=== PATIENT | female | born 1995 | race Caucasian/White ===

== ENCOUNTER 2016-07-11 13:35 | Emergency (ER) | payer OTHER ==
[~2016-07-11] VITALS: Wt 54.5 kg
[~2016-07-11 13:35] MED LIST: ADV25050 INH; ALBU8.5H3 INH; ALBU8.5H3 PO; LEVA15HF6 INH; PRED20TA PO
[2016-07-11] MEDS ORDERED: IBUPROFEN 600 MG TAB PO ONE (14:00)
[2016-07-11] MEDS ORDERED: DIAZEPAM 5 MG TAB PO ONE (14:00)
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
[2016-07-11] MEDS ORDERED: CYCL5TAB PO (14:34)
[2016-07-11] MEDS ORDERED: IBUP-1542 PO (14:34)
[2016-07-11] MEDS ORDERED: ONDANSETRON (ODT) 4 MG TAB ODT STA (15:15)
== END 2016-07-11 16:05 | disposition home or self-care (01) ==
LOC: FTE 13:35
DX: S16.1XXA Strain of muscle, fascia and tendon at neck level, initial encounter (principal); J45.909 Unspecified asthma, uncomplicated; V49.50XA Passenger injured in collision with unspecified motor vehicles in traffic accident, initial encounter
CPT/HCPCS: 72040; Z7502; Z7610

== ENCOUNTER 2017-02-08 14:54 | Emergency (ER) | payer OTHER ==
[~2017-02-08] VITALS: Ht 154.9 cm; Wt 54.8 kg
[~2017-02-08 14:54] MED LIST changes: +IBUP-1542 PO
[2017-02-08 14:57] VITALS: Ht 154.9 cm; Wt 54.8 kg
[2017-02-08] MEDS ORDERED: ALBUTEROL 0.5% (NEB) 2.5 MG/0.5 ML AMP INH STA (15:48)
[2017-02-08] MEDS ORDERED: IPRATROPIUM (NEB) 0.5 MG/2.5 ML AMP NEB STA (15:48)
[2017-02-08] MEDS ORDERED: METHYLPREDNISOLONE 125 MG INJ IM ONE (16:00)
--- NOTE | 2017-02-08 17:50 | RADRPT ---
PROCEDURE: XR Chest. CLINICAL INDICATION: Cough TECHNIQUE: Single AP view of the chest were obtained . The patient abdomen was shielded during the exam. COMPARISON: None FINDINGS: The heart and mediastinum are within normal limits. The pulmonary vasculature are unremarkable. The aorta is unremarkable. There is no lung consolidation, pleural effusion or pneumothorax. There i s no acute osseous abnormality. IMPRESSION: No acute disease. RPTAT: AA .Marcie Pryor MD, MD Date Time Electronically viewed and signed by .Marcie Pryor MD, MD on 02/08/2017 17:50 .J/
[2017-02-08] MEDS ORDERED: ALBU2.5V3 NEB (18:25)
[2017-02-08] MEDS ORDERED: ALBU18HF INHALATION (18:25)
[2017-02-08 18:33] VITALS: BP 115/68; PULSE 87; RESP 18
--- NOTE | 2017-02-08 22:57 | ERD ---
ER Documentation Chief Complaint Chief Complaint Asthma attack x 1 week worst today, flu like s/s HPI 21-year-old female with history of asthma is complaining of shortness of breath 1 day. Patient stated that she ran out of albuterol nebulizer and inhaler. She was prescribed Advair inhaler, but she is not using them. She is taking prednisone 20 mg daily, and Singulair daily. Patient reports pain in the back with deep breathing, as well as wheezing. She has a nonproductive cough. Denies fever. Denies abdominal pain, nausea, vomiting, diarrhea. ROS All systems reviewed and are negative except as per history of present illness. Medications Home Meds Active Scripts Albuterol Sulfate* (Ventolin HFA*) 18 Gm Hfa.aer.ad, 2 PUFF INHALATION Q4H, #1 INHALER Prov:EVGENY TURNER NP 02/08/17 Albuterol Sulfate* (Albuterol Sulfate* Neb) 0.083%-3 Ml Neb, 2.5 MG NEB Q4 Y for SHORTNESS OF BREATH, #30 EA Prov:EVGENY TURNER NP 02/08/17 Ibuprofen* (Motrin*) 600 Mg Tab, 600 MG PO Q6, #30 TAB Prov:ODALIS BERRY PA-C 07/11/16 Albuterol Sulfate* (Proair HFA*) 8.5 Gm Hfa.aer.ad, 2 PUFF INH Q4, #1 INHALER Prov:ODALIS BERRY PA-C 05/14/15 Levalbuterol* (Xopenex* HFA) 15 Gm Inha, 1-2 PUFF INH Q4 Y for SHORTNESS OF BREATH, #1 EA Prov:ODALIS BERRY PA-C 05/14/15 Prednisone* (Prednisone*) 20 Mg Tab, 40 MG PO DAILY for 4 Days, TAB Prov:ODALIS BERRY PA-C 05/14/15 Prednisone* (Prednisone*) 20 Mg Tab, 40 MG PO DAILY for 4 Days, TAB start 01/16 Prov:JUSTIN WADSWORTH MD 01/15/15 Albuterol Sulfate* (Proair HFA*) 8.5 Gm Hfa.aer.ad, 2 PUFF INH Q4 for 14 Days, INH 2 Refills Prov:JUSTIN WADSWORTH MD 01/15/15 Salmeterol Xinaf/Fluticasone* (Advair*) 250-50 Diskus Inhaler, 1 INH INH BID, # 1 INH 1 Refill Prov:JUSTIN WADSWORTH MD 01/15/15 Reported Medications Albuterol Sulfate* (Proair HFA*) 8.5 Gm Hfa.aer.ad, 1-2 PUFFS PO Q4-6HOURS Y for SHORTNESS OF BREATH 08/04/10 Allergies Allergies: Coded Allergies: No Known Drug Allergy (Unverified Allergy, Mild, 11/24/13) PMhx/Soc History of Surgery: No Anesthesia Reaction: No Hx Neurological Disorder: No Hx Respiratory Disorders: Yes (ASTHMA) Hx Cardiac Disorders: No Hx Psychiatric Problems: No Hx Miscellaneous Medical Probl: No Hx Alcohol Use: No Hx Substance Use: No Hx Tobacco Use: No Physical Exam Vitals Vital Signs Date Time Temp Pulse Resp B/P Pulse Ox O2 Delivery O2 Flow Rate FiO2 02/08/17 18:33 87 18 115/68 100 Room Air 02/08/17 16:04 79 18 85 21 02/08/17 14:57 100.4 117 20 127/89 96 Physical Exam General: Well-developed, well-nourished, conscious and coherent, in no distress Skin: Warm and dry without rash, good texture and turgor Head: Normocephalic without evidence of trauma Eyes: Sclera and conjunctivae normal; pupils equal, round, and reactive to light; extraocular movements are intact. Slight exophthalmos. Neck: Supple without meningismus or adenopathy. Carotids are equal. Trachea midline. No bruits or JVD. Thyroid gland is enlarged and palpable bilaterally, no palpable nodules. Chest: Normal AP diameter. Good expansion without retractions. Nontender. Diffuse wheezes and coarse lung sounds throughout with good tidal volume Heart: Regular rate and rhythm. No murmur, rub, or gallops heard Extremities: Full range of motion. Good strength bilaterally. No clubbing, cyanosis, or edema. Peripheral pulses are intact. Sensation intact Neuro: Alert and oriented 4, GCS 15. Cranial nerves grossly intact. Motor and sensory exams nonfocal. Moves all extremities. Speech clear. Gait normal Results 24 hrs Current Medications Medications (Trade) Dose Ordered Sig/Monika Route PRN Reason Start Time Stop Time Status Last Admin Dose Admin Ipratropium [place] (Atrovent 0.02% (Neb)) 0.5 mg ONCE STAT NEB 02/08/17 15:48 02/08/17 15:51 DC 02/08/17 16:02 Albuterol (Proventil 0.5% (Neb)) 10 mg ONCE STAT INH 02/08/17 15:48 02/08/17 15:51 DC 02/08/17 16:02 Methylprednisolone Sodium Succinate (Solu-Medrol) 125 mg ONCE ONCE IM 02/08/17 16:00 02/08/17 16:01 DC 02/08/17 15:55 PROCEDURE: XR Chest. CLINICAL INDICATION: Cough TECHNIQUE: Single AP view of the chest were obtained . The patient abdomen was shielded during the exam. COMPARISON: None FINDINGS: The heart and mediastinum are within normal limits. The pulmonary vasculature are unremarkable. The aorta is unremarkable. There is no lung consolidation, pleural effusion or pneumothorax. There is no acute osseous abnormality. IMPRESSION: No acute disease. RPTAT: AA .Marcie Pryor MD, MD Date Time Electronically viewed and signed by .Marcie Pryor MD, MD on 02/08/2017 17:50 .J/ CC: EVGENY TURNER. [employer] CLEANING SUPERVISOR Procedures/MDM Solu-Medrol 125 mg IM, albuterol 10 mg and Atrovent 0.5 mg continuous nebulizer treatment given to the patient in ED. Patient reports breathing better after the nebulizer treatment. Repeat exam revealed complete clear lungs bilaterally. Chest x-ray is negative for acute cardiopulmonary processes. Patient is advised to use Advair twice daily as prescribed to control her asthma. I also questioned daily prednisone use, and have her follow-up with her PCP to see if she still needs continued prednisone use. For now, I feel he will help to control her acute exacerbation. On physical exam, patient noted to have exophthalmos and enlarged thyroid glands. I question patient further, patient stated that her hair has been thinning and falling out, and she is noticing her heart beating fast as well as feeling hot all the time. I suspect the patient may have hyperthyroidism. I doubt thyroid storm or toxic thyroiditis. I advised patient to follow-up with her PCP to evaluate her thyroid. Patient appears well, stable for discharge and outpatient management. Medical decision making shared with patient and family. Education provided to patient and family. Patient and family expressed understanding of the plan. Medications on discharge: Albuterol nebulizer, albuterol HFA. Follow-up: Primary care provider in 2-3 days or return to ED if worse. Disclaimer: Inadvertent spelling and grammatical errors are likely due to EHR/ dictation software use and do not reflect on the overall quality of patient care. Also, please note that the electronic time recorded on this note does not necessarily reflect the actual time of the patient encounter. Departure Diagnosis: Primary Impression: Asthma exacerbation Condition: Stable Patient Instructions: Asthma, Acute (Adult) Referrals: [facility], [facility] YOU HAVE RECEIVED A MEDICAL SCREENING EXAM AND THE RESULTS INDICATE THAT YOU DO NOT HAVE A CONDITION THAT REQUIRES URGENT TREATMENT IN THE EMERGENCY DEPARTMENT. FURTHER EVALUATION AND TREATMENT OF YOUR CONDITION CAN WAIT UNTIL YOU ARE SEEN IN YOUR DOCTORS OFFICE WITHIN THE NEXT 1-2 DAYS. IT IS YOUR RESPONSIBILITY TO MAKE AN APPOINTMENT FOR FOLOW-UP CARE. IF YOU HAVE A PRIMARY DOCTOR --you should call your primary doctor and schedule an appointment IF YOU DO NOT HAVE A PRIMARY DOCTOR YOU CAN CALL OUR PHYSICIAN REFERRAL HOTLINE AT IF YOU CAN NOT AFFORD TO SEE A PHYSICIAN YOU CAN CHOSE FROM THE FOLLOWING [facility] [address] [facility] [facility] [address] [facility] [facility] [address] [facility] [address] [facility]. [facility] [address] [facility] [facility] [facility]. [facility]. [address] Additional Instructions: Call your primary care doctor TOMORROW for an appointment during the next 2-3 days.See the doctor sooner or return here if your condition worsens before your appointment time. EVGENY TURNER NP Feb 08, 2017 22:27
== END 2017-02-08 18:34 | disposition home or self-care (01) ==
LOC: FTE 14:54
DX: J45.901 Unspecified asthma with (acute) exacerbation (principal)
CPT/HCPCS: 71010; 94644; 96372; J2930; Z7502; Z7610

== ENCOUNTER 2017-10-28 10:05 | Emergency (ER) | END 2017-10-28 13:25 | disposition home or self-care (01) ==

== ENCOUNTER 2018-03-08 10:46 | Emergency (ER) | payer OTHER ==
[~2018-03-08] VITALS: Ht 167.6 cm; Wt 54.4 kg
[~2018-03-08 10:46] MED LIST changes: +ALBU18HF INHALATION; +ALBU2.5V3 NEB; -ALBU8.5H3 INH; -ALBU8.5H3 PO; +ALBU8.5H8 INH; +ALBU8.5H8 PO; +AZIT250T PO; +CETI10CA PO; +FLUT12HF IH
[2018-03-08 10:50] VITALS: BP 122/75; PULSE 96; RESP 20; Ht 167.6 cm; Wt 54.4 kg
[2018-03-08] MEDS ORDERED: CEFU500T45 PO (11:23)
[2018-03-08] MEDS ORDERED: PRED20TA PO (11:23)
--- NOTE | 2018-03-08 11:25 | ERD ---
ER Documentation Chief Complaint Chief Complaint Complains of clogged ear and sinus problems x 2 days HPI 22-year-old female presents with bilateral ear congestion, nasal congestion, facial pain worsening over the last 2 weeks. She tried to see her PCP today but her group was changed. She denies any measured fevers. She has cough as well. She has a history of asthma and uses albuterol. ROS All systems reviewed and are negative except as per history of present illness. Medications Home Meds Active Scripts Prednisone* (Prednisone*) 20 Mg Tab, 40 MG PO DAILY for 5 Days, TAB Prov:JUSTIN WADSWORTH MD 03/08/18 Cefuroxime Axetil* (Cefuroxime Axetil*) 500 Mg Tablet, 500 MG PO BID for 10 Days, TAB Prov:JUSTIN WADSWORTH MD 03/08/18 Azithromycin* (Zithromax*) 250 Mg Tablet, 250 MG PO .ZPACK DIRECTED, #6 TAB TAKE 500 MG (2 TABS) THE FIRST DAY THEN 250 MG (1 TAB) DAYS 2-5 Prov:TODD MTZ PA-C 10/28/17 Cetirizine Hcl* (Zyrtec*) 10 Mg Capsule, 10 MG PO DAILY, #30 TAB.CHEW Prov:TODD MTZ PA-C 10/28/17 Albuterol Sulfate* (Proair HFA*) 8.5 Gm Hfa.aer.ad, 2 PUFF INH Q4H PRN for WHEEZING AND SOB, #1 INHALER Prov:TODD MTZ PA-C 10/28/17 Salmeterol Xinaf-Fluticasone* (Advair HFA*) Aerosol Inhaler, 2 INH IH BID, #1 INHALER Prov:TODD MTZ PA-C 10/28/17 Albuterol Sulfate* (Ventolin HFA*) 18 Gm Hfa.aer.ad, 2 PUFF INHALATION Q4H, #1 INHALER Prov:EVGENY TURNER SITE WORKER 02/08/17 Albuterol Sulfate* (Albuterol Sulfate* Neb) 0.083%-3 Ml Neb, 2.5 MG NEB Q4 PRN for SHORTNESS OF BREATH, #30 EA Prov:EVGENY TURNERMatt ALCAZAR 02/08/17 Ibuprofen* (Motrin*) 600 Mg Tab, 600 MG PO Q6, #30 TAB Prov:ODALIS BERRY PA-C 07/11/16 Albuterol Sulfate* (Proair HFA*) 8.5 Gm Hfa.aer.ad, 2 PUFF INH Q4, #1 INHALER Prov:ODALIS BERRY PA-C 05/14/15 Levalbuterol* (Xopenex* HFA) 15 Gm Inha, 1-2 PUFF INH Q4 PRN for SHORTNESS OF BREATH, #1 EA Prov:ODALIS BERRY PA-C 05/14/15 Prednisone* (Prednisone*) 20 Mg Tab, 40 MG PO DAILY for 4 Days, TAB Prov:ODALIS BERRY PA-C 05/14/15 Prednisone* (Prednisone*) 20 Mg Tab, 40 MG PO DAILY for 4 Days, TAB start 01/16 Prov:JUSTIN WADSWORTH MD 01/15/15 Albuterol Sulfate* (Proair HFA*) 8.5 Gm Hfa.aer.ad, 2 PUFF INH Q4 for 14 Days, INH 2 Refills Prov:JUSTIN WADSWORTH MD 01/15/15 Salmeterol Xinaf/Fluticasone* (Advair*) 250-50 Diskus Inhaler, 1 INH INH BID, #1 INH 1 Refill Prov:JUSTIN WADSWORTH MD 01/15/15 Reported Medications Albuterol Sulfate* (Proair HFA*) 8.5 Gm Hfa.aer.ad, 1-2 PUFFS PO Q4-6HOURS PRN for SHORTNESS OF BREATH 08/04/10 Allergies Allergies: Coded Allergies: amoxicillin (Verified Allergy, Unknown, rashes, 10/28/17) PMhx/Soc History of Surgery: No Anesthesia Reaction: No Hx Neurological Disorder: No Hx Respiratory Disorders: Yes (ASTHMA) Hx Cardiac Disorders: No Hx Psychiatric Problems: No Hx Miscellaneous Medical Probl: No Hx Alcohol Use: No Hx Substance Use: No Hx Tobacco Use: No FmHx Family History: No diabetes, No coronary disease, No other Physical Exam Vitals Vital Signs Date Temp Pulse Resp B/P (MAP) Pulse Ox O2 O2 Flow FiO2 Time Delivery Rate 03/08/18 98.8 96 20 122/75 100 10:50 (91) Physical Exam Const: No acute distress Head: Atraumatic Eyes: Normal Conjunctiva ENT: Normal External Ears, Nose and Mouth. TMs are clear fluid and bulging bilaterally. 3+ nasal congestion. Postnasal drip. Neck: Full range of motion. No meningismus. Resp: Clear to auscultation bilaterally. Minimal wheeze without rales or retractions. Cardio: Regular rate and rhythm, no murmurs Abd: Soft, non tender, non distended. Normal bowel sounds Skin: No petechiae or rashes Back: No midline or flank tenderness Ext: No cyanosis, or edema Neur: Awake and alert Psych: Normal Mood and Affect Procedures/MDM Patient presents with URI symptoms for last 2 weeks. Given the duration of signs of sinusitis she will be treated with Ceftin, prednisone, continuation of albuterol, primary care follow-up and return precautions. She has no signs of pneumonia, hypoxemia, rest or distress on exam. The patient was stable with no new complaints during the ER course. Clinically, there is no current evidence to suggest meningitis, sepsis, acute abdomen, pneumonia, stroke, acute coronary syndrome, pulmonary embolism, aortic dissection or any other emergent condition appearing to require further evaluation or hospitalization. Patient counseled regarding my diagnostic impression and care plan. Prior to discharge all qu estions answered. Pt agrees with treatment plan and understands strict return precautions. Pt is instructed to follow up with primary care provider within 24- 48 hours. Precautionary instructions provided including instructions to return to the ER if not improving or for any worsening or changing symptoms or concerns. Departure Diagnosis: Primary Impression: Sinusitis Sinusitis location: maxillary Chronicity: acute Recurrence: not specified as recurrent Qualified Codes: J01.00 - Acute maxillary sinusitis, unspecified Condition: Stable Patient Instructions: Sinusitis, Abx Tx Additional Instructions: Continue albuterol as needed. Recheck for new or worsening symptoms with primary care doctor. JUSTIN WADSWORTH MD Mar 08, 2018 11:25
== END 2018-03-08 11:40 | disposition home or self-care (01) ==
LOC: FTE 10:46
DX: J01.00 Acute maxillary sinusitis, unspecified (principal); J45.909 Unspecified asthma, uncomplicated
CPT/HCPCS: 99283